=== PATIENT | female | born 1955 | race Caucasian/White ===

== ENCOUNTER 2024-12-15 23:01 | Observation (INO) | payer MEDICARE, MEDICAID, SELFPAY ==
[2024-12-15 23:04] VITALS: PULSE 73; O2SAT 98
[2024-12-15 23:11] VITALS: BP 181/85; PULSE 72; RESP 18; TEMP 36.7; O2SAT 98; BMI 22.6
[2024-12-15 23:30] VITALS: BP 160/75; PULSE 71; O2SAT 99
[2024-12-16] VITALS (25 sets, daily range): BP systolic 103–167; BP diastolic 58–78; PULSE 66–96; RESP 12–18; TEMP 35.9–37; O2SAT 92–100; BMI 22.6
[2024-12-16 00:03] LABS: Add Manual Diff / Slide Review NO; Basophils Absolute Auto 100 /uL (0-100); Basophils Percent Auto 0.4 % (0-2); Eosinophils Absolute Auto 0 /uL (0-450); Eosinophils Percent Auto 0.2 % (2-4); Hematocrit 41.7 % (36-46); Hemoglobin 13.8 g/dL (12.0-16.0); Lymphocytes Absolute Auto 1600 /uL (1100-4500); Mean Corpuscular Volume 99.9 fL (80-100); Monocytes Absolute Auto 900 /uL (0-900); Monocytes Percent Auto 6.5 % (3-14); Neutrophils Absolute Auto 11100 /uL (1500-7000); Neutrophils Percent Auto 80.9 % (50-75); Platelet Count 212 X10^3/uL (150-400); Red Blood Cell Count 4.18 X10^6/uL (4.0-5.2); White Blood Cell Count 13.7 X10^3/uL (4.5-11.0)
[2024-12-16 00:14] LABS: Alanine Aminotransferase 18 IU/L (<35); Albumin 4.3 g/dL (3.5-5.0); Albumin Globulin Ratio 1.6 (1.0-2.8); Alkaline Phosphatase 68 U/L (38-126); Aspartate Aminotransferase 27 IU/L (14-36); BUN Creatinine Ratio 11.8 (6-22); Bilirubin Total 0.6 mg/dL (0.2-1.3); Blood Urea Nitrogen 8 mg/dL (7-17); Calcium 8.6 mg/dL (8.4-10.2); Carbon Dioxide 27 mmol/L (22-32); Chloride 103 mmol/L (98-107); Estimated Glomerular Filt Rate > 60 mL/min (>60); Globulin 2.7 g/dL (1.7-4.1); Glucose 112 mg/dL (70-99); HEMOLYSIS 28 (0-50); Lipase 52 U/L (23-300); Sodium 136 mmol/L (137-145)
--- NOTE | 2024-12-16 00:18 | DI.CT.S_ITS ---
PROCEDURE: CT ABDOMEN PELVIS W CON INDICATIONS: LLQ abd pain TECHNIQUE: After the administration of intravenous contrast, axial sections acquired from the lung bases to the pubic symphysis. Coronal and sagittal reformats were performed. For radiation dose reduction, the following was used: automated exposure control, adjustment of mA and/or kV according to patient size. COMPARISON: None. FINDINGS: Image quality: Diagnostic. Lower Chest: No significant findings. ABDOMEN: Liver: No solid mass. Small cysts. Gallbladder: No radiopaque gallstones or wall thickening. Biliary ducts: No biliary dilation. Pancreas: No ductal dilation. Spleen: Size is within normal limits. Adrenal Glands: No adrenal nodules. Kidneys and Ureters: No hydronephrosis. No solid mass. No complex renal cystic lesion which requires follow up. Stomach and Bowel: Diverticulosis. No diverticulitis. The appendix is dilated measuring 1.6 cm, (3/37). The appendiceal wall is thickened and hyperemic. Findings consistent with acute appendicitis. No appendectolith. The appendix projects towards the midline. High-density material in the right colon most likely medication fragments or Tums. No small bowel obstruction. The stomach is not distended. Peritoneum: No abnormal intraperitoneal fluid. No free air. Ventral Wall: No significant ventral hernia. Abdominal Nodes: No retroperitoneal or mesenteric adenopathy by size criteria. Vessels: No aortic aneurysm. Moderate calcified plaque. PELVIS: Pelvic Organs: Anteverted uterus. Trace free fluid in the pelvis.. Bladder: No bladder wall thickening, accounting for underdistention. Pelvic Nodes: No enlarged lymph nodes. Miscellaneous: Tiny fat containing umbilical hernia. Bones: No aggressive osseous abnormality. IMPRESSION: 1. Acute appendicitis. No abscess. 2. Trace free fluid in the pelvis. No pneumoperitoneum. Comment: Findings were discussed with Walter White at 2:00 a.m. Dictated by: Vinod Calderón M.D. on 12/16/2024 at 1:52 Approved by: Vinod Calderón M.D. on 12/16/2024 at 2:02
[2024-12-16 00:23] LABS: Ethanol (ETOH) < 10 mg/dL
--- NOTE | 2024-12-16 00:25 | ED_ITS ---
HPI - Abdominal Pain General Chief Complaint: Abdominal Pain Stated Complaint: Abd pain LLQ Time Seen by Provider: 12/15/24 23:08 Source: patient and EMS Mode of arrival: EMS History of Present Illness HPI narrative: 67-year-old female with left lower quadrant abdominal discomfort for the last few days, status post screening colonoscopy 2 weeks ago at [facility] that she reports was negative, does not recall any biopsy done at that time, discharged from that procedure feeling well. Prior , otherwise no abdominopelvic surgeries. Pain worsened overnight, was flown here by air ambulance helicopter for further evaluation from [facility]. Related Data Allergies Allergy/AdvReac Type Severity Reaction Status Date / Time naproxen [From Aleve] Allergy Verified 12/15/24 23:10 Patient History Medical History (Updated 12/16/24 @ 10:00 by Vitaly Noyola MD) Anxiety Surgical History (Updated 12/16/24 @ 09:51 by Vitaly Noyola MD) History of section Social History household members: significant other Smoking Status: Never smoker Smoking Status: Never smoker Alcohol type: hard liquor Exam Narrative Exam Narrative: GENERAL: Well-developed patient, in mild distress. HEAD: Atraumatic. Normocephalic. EYES: Pupils equal round and reactive. Extraocular motions intact. No scleral icterus. No injection or drainage. ENT: Nose without bleeding, purulent drainage. Throat without erythema, tonsillar hypertrophy or exudate. Airway patent. NECK: Trachea midline. Non tender CARDIOVASCULAR: Regular rate and rhythm without murmurs, gallops, or rubs. RESPIRATORY: Clear to auscultation. Breath sounds equal bilaterally. No wheezes, rales, or rhonchi. GASTROINTESTINAL: Abdomen soft, some tenderness suprapubic and adjacent left lower quadrant, nondistended, no guarding or rebound tenderness, bowel tones present without rushes or tinkles. No obvious ventral hernias. EXTREMITIES: No edema or joint tenderness. BACK: Nontender without deformity or crepitance. No flank tenderness. NEURO: AOx3. Motor functions grossly nonfocal SKIN: No rash or erythema of visible areas Initial Vital Signs Initial Vital Signs: Vital Signs Pulse Rate 73 12/15/24 23:04 Pulse Oximetry 98 12/15/24 23:04 Course Orders Ordered: Hydromorphone HCl (Hydromorphone 0.5 Mg Inj) 0.5 mg IV Q2H PRN PRN Reason: Pain, Severe (7-10) Last Admin: 12/16/24 10:38 Dose: 0.5 mg Documented By: Admin: 12/16/24 08:16 Dose: 0.5 mg Documented By: Admin: 12/16/24 04:39 Dose: 0.5 mg Documented By: KRISTAL Lactated Ringer's (Lactated Ringers) 1,000 mls @ 100 mls/hr IV CONT KYMBERLY Last Admin: 12/16/24 04:40 Dose: 100 mls/hr Documented By: KRISTAL Lactated Ringer's (Lactated Ringers) 1,000 mls @ 42 mls/hr IV CONT KYMBERLY Discontinued Medications Acetaminophen (Acetaminophen 325 Mg Tablet) 975 mg PO NOW ONE Stop: 12/16/24 13:03 Hydromorphone HCl (Hydromorphone 0.5 Mg Inj) 0.5 mg IV NOW ONE Stop: 12/16/24 00:35 Last Admin: 12/16/24 00:40 Dose: 0.5 mg Documented By: GURJIT Piperacillin Sod/Tazobactam (Sod 4.5 gm/ Sodium Chloride) 100 mls @ 200 mls/hr IV NOW ONE Stop: 12/16/24 01:59 Last Infusion: 12/16/24 09:44 Dose: Infused Documented By: Admin: 12/16/24 04:18 Dose: 200 mls/hr Documented By: KRISTAL Cefazolin Sodium/Dextrose (Ancef) 100 mls @ 200 mls/hr IV NOW ONE Stop: 12/16/24 15:14 Ondansetron HCl (Ondansetron 4 Mg/2 Ml Inj) 4 mg IV NOW ONE Stop: 12/16/24 00:35 Last Admin: 12/16/24 00:40 Dose: 4 mg Documented By: GURJIT Vital Signs Vital signs: Vital Signs - 8 hr 12/15/24 23:04 12/15/24 23:11 12/15/24 23:30 Temperature 98.1 F Pulse Rate 73 72 Respiratory Rate 18 Blood Pressure 181/85 H 160/75 H Pulse Oximetry 98 98 Oxygen Delivery Method Room Air Oxygen Flow Rate 12/15/24 23:30 12/16/24 00:00 12/16/24 00:03 Temperature Pulse Rate 71 70 Respiratory Rate Blood Pressure 167/73 H Pulse Oximetry 99 100 Oxygen Delivery Method Oxygen Flow Rate 12/16/24 00:03 12/16/24 00:30 12/16/24 00:30 Temperature Pulse Rate 69 71 Respiratory Rate Blood Pressure 166/78 H Pulse Oximetry 100 100 Oxygen Delivery Method Oxygen Flow Rate 12/16/24 01:25 Temperature Pulse Rate Respiratory Rate Blood Pressure Pulse Oximetry 99 Oxygen Delivery Method Nasal Cannula Oxygen Flow Rate 2 MDM - Abdominal Pain Lab Data Attestation: I reviewed the patient's lab results. Lab results narrative: White blood cell count 65593, hemoglobin 13.8, platelets normal. Basic metabolic panel unremarkable. Normal renal function. Liver functions and lipase normal. 12/15/24 23:55 12/15/24 23:55 Labs: Lab Results 12/15/24 Range/Units 23:55 WBC 13.7 H (4.5-11.0) X10^3/uL RBC 4.18 (4.0-5.2) X10^6/uL Hgb 13.8 (12.0-16.0) g/dL Hct 41.7 (36-46) % MCV 99.9 (80-100) fL MCH 33.0 (26-34) PG MCHC 33.0 (30-36) % RDW 13.0 (11.6-14.8) % Plt Count 212 (150-400) X10^3/uL Neut % (Auto) 80.9 H (50-75) % Lymph % (Auto) 12.0 L (25-40) % Emmons % (Auto) 6.5 (3-14) % Eos % (Auto) 0.2 L (2-4) % Baso % (Auto) 0.4 (0-2) % Neut # (Auto) 04283 H (2280-6744) /uL Lymph # (Auto) 1600 (3470-0097) /uL Emmons # (Auto) 900 (0-900) /uL Eos # (Auto) 0 (0-450) /uL Baso # (Auto) 100 (0-100) /uL Sodium 136 L (137-145) mmol/L Potassium 4.0 (3.4-5.1) mmol/L Chloride 103 (98-107) mmol/L Carbon Dioxide 27 (22-32) mmol/L BUN 8 (7-17) mg/dL Creatinine 0.68 (0.52-1.04) mg/dL Estimated GFR > 60 (>60) mL/min BUN/Creatinine Ratio 11.8 (6-22) Glucose 112 H (70-99) mg/dL Calcium 8.6 (8.4-10.2) mg/dL Total Bilirubin 0.6 (0.2-1.3) mg/dL AST 27 (14-36) IU/L ALT 18 (<35) IU/L Alkaline Phosphatase 68 (38-126) U/L Total Protein 7.0 (6.3-8.2) g/dL Albumin 4.3 (3.5-5.0) g/dL Globulin 2.7 (1.7-4.1) g/dL Albumin/Globulin Ratio 1.6 (1.0-2.8) Lipase 52 (23-300) U/L Ethyl Alcohol < 10 ( - 10) mg/dL Imaging Data CT scan - abdomen/pelvis: Radiologist's Impression: [place] [address] CT Scan Report Signed Patient: Samantha Pinon MR#: [id number] : 1955 Acct:[id number] Age/Sex: 69 / F Date of Service: 12/16/24 Loc: ED Accession Number: [id number] Procedure: CT abdomen pelvis w con Ordering Provider: Walter White MD PROCEDURE: CT ABDOMEN PELVIS W CON INDICATIONS: LLQ abd pain TECHNIQUE: After the administration of intravenous contrast, axial sections acquired from the lung bases to the pubic symphysis. Coronal and sagittal reformats were performed. For radiation dose reduction, the following was used: automated exposure control, adjustment of mA and/or kV according to patient size. COMPARISON: None. FINDINGS: Image quality: Diagnostic. Lower Chest: No significant findings. ABDOMEN: Liver: No solid mass. Small cysts. Gallbladder: No radiopaque gallstones or wall thickening. Biliary ducts: No biliary dilation. Pancreas: No ductal dilation. Spleen: Size is within normal limits. Adrenal Glands: No adrenal nodules. Kidneys and Ureters: No hydronephrosis. No solid mass. No complex renal cystic lesion which requires follow up. Stomach and Bowel: Diverticulosis. No diverticulitis. The appendix is dilated measuring 1.6 cm, (3/37). The appendiceal wall is thickened and hyperemic. Findings consistent with acute appendicitis. No appendectolith. The appendix projects towards the midline. High-density material in the right colon most likely medication fragments or Tums. No small bowel obstruction. The stomach is not distended. Peritoneum: No abnormal intraperitoneal fluid. No free air. Ventral Wall: No significant ventral hernia. Abdominal Nodes: No retroperitoneal or mesenteric adenopathy by size criteria. Vessels: No aortic aneurysm. Moderate calcified plaque. PELVIS: Pelvic Organs: Anteverted uterus. Trace free fluid in the pelvis.. Bladder: No bladder wall thickening, accounting for underdistention. Pelvic Nodes: No enlarged lymph nodes. Miscellaneous: Tiny fat containing umbilical hernia. Bones: No aggressive osseous abnormality. IMPRESSION: 1. Acute appendicitis. No abscess. 2. Trace free fluid in the pelvis. No pneumoperitoneum. Comment: Findings were discussed with Walter White at 2:00 a.m. Dictated by: Vinod Calderón M.D. on 12/16/2024 at 1:52 Approved by: Vinod Calderón M.D. on 12/16/2024 at 2:02 MDM Narrative Medical decision making narrative: 69-year-old female with lower abdominal pain about 2 weeks after colonoscopy without biopsy, tenderness seems to be midline suprapubic and slightly to the left. DX consider colitis, diverticulitis, obstruction, volvulus, perforation from recent colonoscopy/abscess, UTI, distal ureteral stone, regulatory attorney etiology, other. Keep NPO. Labs pending. IV Dilaudid for pain control. GFR favorable. CT abdomen and pelvis ordered. Phone call from Radiology, on CT scan they feel that there are changes of acute appendicitis without perforation, the appendix does extend toward the left side toward the bladder. See radiology CT report. Blood cultures, IV Zosyn antibiotic. Patient informed of results. We will consult with surgery. 0200, case discussed with surgery Dr. Jaimes who accepts patient for admission, surgery likely later this morning. Keep NPO. Discharge Plan Departure Patient Disposition: Admitted to Surgery Clinical Impression: Appendicitis, acute Qualifiers: Acute appendicitis type: with localized peritonitis Appendicitis gangrene presence: without gangrene Appendicitis perforation presence: without perforation Appendicitis abscess presence: without abscess Qualified Code(s): K 35.30 - Acute appendicitis with localized peritonitis, without perforation or gangrene Admit Date/Time: 12/16/24 02:23 Admit Provider: Dewayne Jaimes
[2024-12-16] MEDS: HYDROMORPHONE 0.5 MG INJ IV ×5 (00:40→22:48)
[2024-12-16] MEDS: ONDANSETRON 4 MG/2 ML INJ IV (00:40)
--- NOTE | 2024-12-16 01:20 | PC.NURSE ---
Pt oxygen desats to 86% on RA. She responds to this nurse and is alert. Pt placed on 2L via NC and her oxygen improves to 100% via NC.
[2024-12-16] MEDS: PIPERACILLIN/TAZO 4.5 GM in SODIUM CHLORIDE 0.9% 100 ML IV (04:18)
[2024-12-16] MEDS: LACTATED RINGERS 1,000 ML 100 ML IV ×2 (04:40→15:50)
--- NOTE | 2024-12-16 09:46 | P.HP_ITS ---
History of Present Illness History of Present Illness Chief complaint: Abd pain LLQ Narrative: 69 y/o female with 2 day h/o lower abdominal pain. It was initially generalized, then localized to the RLQ. WBC 13.7 in ER. No N/V. Presneted to ER where abdominal tenderness was noted. CT with edematous appendix c/w acute appendicitis. [facility] Medical History (Updated 12/16/24 @ 10:00 by Vitaly Noyola MD) Anxiety Surgical History (Updated 12/16/24 @ 09:51 by Vitaly Noyola MD) History of section Social History household members: significant other Smoking Status: Never smoker Meds Home Medications and Allergies Allergies Allergy/AdvReac Type Severity Reaction Status Date / Time naproxen [From Aleve] Allergy Verified 12/15/24 23:10 Review of Systems Review of Systems Narrative: Comprehensive review of systems negative to directed questioning. Exam Vital Signs (past 8 hours): - 12/16/24 02:00 12/16/24 02:11 12/16/24 02:11 Temperature Pulse Rate 73 77 Respiratory Rate Blood Pressure 156/75 H Pulse Oximetry 99 100 Oxygen Delivery Method Oxygen Flow Rate 12/16/24 02:30 12/16/24 02:30 12/16/24 04:30 Temperature Pulse Rate 68 73 Respiratory Rate 16 Blood Pressure 162/68 H 160/75 H Pulse Oximetry 100 98 Oxygen Delivery Method Room Air Oxygen Flow Rate 12/16/24 08:34 Temperature 96.6 F L Pulse Rate 66 Respiratory Rate 18 Blood Pressure 119/60 Pulse Oximetry 100 Oxygen Delivery Method Oxygen Flow Rate 0 Oxygen Delivery Method Room Air Oxygen Flow Rate 0 Const General: cooperative and healthy appearing Nutritional Appearance: average body habitus [facility] Head: normal to inspection, normocephalic and atraumatic Ears: hearing grossly normal bilaterally and external ears normal Nose: external nose normal and nares normal Mouth: oral mucosae normal, lip normal and tongue normal Teeth and gingiva: dentition normal and gingiva normal Eyes General: appearance normal, both eyes and all related structures EOM: EOM intact bilaterally Neck Neck: normal visual inspection, full ROM, no meningeal signs and supple Thyroid: thyroid normal Chest Chest: normal inspection of the chest and normal palpation of entire chest wall Resp Effort & Inspection: normal respiratory effort and able to speak in complete sentences Auscultation: clear to auscultation bilaterally Cardio Palpation: normal PMI Rate: regular rate Rhythm: regular rhythm Heart Sounds: S1 normal and S2 normal GI Inspection: normal to inspection Palpation: soft and tender (RLQ tenderness) Auscultation: hypoactive bowel sounds Back/Spine/Pelvis Back: normal to inspection Cervical Spine: normal cervical lordosis Thoracic/Lumbar Spine: thoracic and lumbar spine normal to inspection Skin General: no rashes or lesions noted Neuro General: patient alert, patient awake and patient oriented x3 Cranial Nerves: CN's II-XI intact bilaterally Extrem General: normal to inspection, full ROM and capillary refill normal Psych Appearance: grossly normal and well kempt Objective Labs 12/15/24 23:55 12/15/24 23:55 Labs: Laboratory Results - last 24 hr 12/15/24 23:55 WBC 13.7 H RBC 4.18 Hgb 13.8 Hct 41.7 MCV 99.9 MCH 33.0 MCHC 33.0 RDW 13.0 Plt Count 212 Neut % (Auto) 80.9 H Lymph % (Auto) 12.0 L Hale % (Auto) 6.5 Eos % (Auto) 0.2 L Baso % (Auto) 0.4 Neut # (Auto) 48129 H Lymph # (Auto) 1600 Hale # (Auto) 900 Eos # (Auto) 0 Baso # (Auto) 100 Sodium 136 L Potassium 4.0 Chloride 103 Carbon Dioxide 27 BUN 8 Creatinine 0.68 Estimated GFR > 60 BUN/Creatinine Ratio 11.8 Glucose 112 H Calcium 8.6 Total Bilirubin 0.6 AST 27 ALT 18 Alkaline Phosphatase 68 Total Protein 7.0 Albumin 4.3 Globulin 2.7 Albumin/Globulin Ratio 1.6 Lipase 52 Ethyl Alcohol < 10 Assessment & Plan Assessment and plan (1) Appendicitis, acute: Qualifiers: Acute appendicitis type: with localized peritonitis Appendicitis abscess presence: without abscess Appendicitis gangrene presence: without gangrene Appendicitis perforation presence: without perforation Qualified Code(s): K35.30 - Acute appendicitis with localized peritonitis, without perforation or gangrene Status: Acute Plan: Signs, symptoms and diagnostics c/w acute appendicitis. I have recommended a laparoscopic attempt at appendectomy. Alternatives, risks and benefits discussed in detail. Questions answered. Pt desires to proceed as I have outlined. Time-Based Coding :: [TOTAL MINUTES] spent with patient and on the chart (including review of chart, obtaining history, exam, reviewing outside data, placing orders, documenting exam and treatment plan, and counseling patient) on [DATE]. Quality VTE Deep Vein Thrombosis/Pulmonary Embolism Present on Admission: No IH PROFEE Sewer And Inspector Document charge(s): Yes
--- NOTE | 2024-12-16 11:58 | PC.NURSE ---
Addendum entered by Marian Mao R.N. 12/16/24 19:03: Patient back from surgery around 1830. She is doing well, no ivf hung as none were ordered post surgery. She denies pain. She has 3 small incision sites with jae, gauze, and bandaides. Patient is doing well. Original Note: Assess- Patient has complained of pain x2. She was given 0.5mg of iv dilaudid around 0815 and around 1030. This has been helpful to her. BT are hypoactive x4, she will be going to surgery sometime today. She has flares of disocomfort across her abdomen. She will be going for an appendectomy.
--- NOTE | 2024-12-16 14:33 | CM.DANOTE ---
DCP Assessment Note pt is a 69yo F admitted with acute appendicitis PCP ALESHA An Group Payer Medicare/[employer] MASONRY INSTRUCTOR reviewed EMR per chart review, plan for OR lap appy later this afternoon. MASONRY INSTRUCTOR entered room and introduced self and role. pt resting in bed. anxious about her OBS status/potential co pay. MASONRY INSTRUCTOR attempted to educate pt that her supplement will theoretically cover her Medicare OBS copay we just can't make promises on what is covered. Pt remains axious about her bill and her cats. Lives at home with partner Amisha. pt indep at baseline, no O2/DME/walks 6 miles per day. anxious about ferry. attempted to get ferry pass for 12/17 no reservations available, MASONRY INSTRUCTOR agreed to complete ferry medical boarding pass for 12/17 if pt stable to dc. pt appreciative. denies other CM/DCP needs. P: anticipate home tomorrow/when medically stable with partner to transport in POV/ferry, boarding pass needed. no other identified barriers to safe return home at this time, will continue to follow as needed CHUCK Marques Discharge Planning/Care Management CM Discharge Assessment Start: 12/16/24 14:31 Freq: Status: Active Protocol: Document 12/16/24 14:32 SL (Rec: 12/16/24 14:33 SL Desktop) Discharge Planning Assessment Assigned Quality Assurance Intern CHUCK Mcgarry DPOA/Assigned Designee Name malick Lion Contact Information [phone] Advance Directives? No History Provided By Patient Prior Living Arrangements House Household Members significant other Type of transporation used prior to Drives own vehicle admit Independent with ADL's Yes Is patient alert and oriented? Yes Discharge Plan Home Transportation Arrangement partner in POV and ferry Referrals Initiated None needed Whiteboard Updated in Patient Room with Yes name and ext. # of Quality Assurance Intern Review Status In Process Please Provide Date Initial DC 12/16/24 Assessment Was Performed Next Review Type Continued Stay Review
[2024-12-16] MEDS: HYDROMORPHONE 1 MG INJ 0.5 MG IV (15:53)
[2024-12-16] MEDS: CEFAZOLIN 2 GM/100 ML PREMIX 100 ML IV (16:33)
--- NOTE | 2024-12-16 16:48 | SUR.OPER ---
Supine on padded OR bed, head on pillow, right arm secured on padded arm boards at <90 degrees abduction, left arm tucked, legs uncrossed, pillow at knees, safety belt at thigh, tape over blanket over lower legs.
[2024-12-16] MEDS: ACETAMINOPHEN IV 1,000 MG/100 ML VIAL 400 MG IV (16:55)
[2024-12-16] MEDS: BUPIVACAINE 0.5% (PF) 30 ML VIAL INJ (17:08)
--- NOTE | 2024-12-16 17:55 | PM.OP.1 ---
Operative Date/Time/Diagnoses Pre-op diagnosis: acute appendicitis Post-op diagnosis: same Procedure & Clinicians Procedure: Laparoscopic appendectomy. Same procedure as scheduled: Yes Indications: Acute appendicitis Surgeon: Vitaly Noyola Click Yes if Unassisted: Yes Operative Notes Findings: Acute appendicitis Closure Type: primary Specimen(s): other (Vermiform appendix) Procedure in detail: After obtaining informed consent identifying the patient the patient was transported to the operating room and was placed on the table in the supine position general endotracheal anesthesia was induced and the abdomen was prepped and draped in the usual sterile manner. Time-out protocol was observed. A vertical midline incision 2.5 cm length was made with its caudad apex on the umbilical verge with a 15 blade. This was carried down onto the linea Alba bluntly. Traction sutures of 0 Vicryl were placed on either side of midline and a peritoneotomy was made under direct vision between the traction sutures. Surgeon's finger was introduced to ensure peritoneal entry and a 10 mm Hernandez cannula was installed. Pneumoperitoneum was instilled. A 5 mm 30 degree angled laparoscope was passed. Posterior surface of the abdominal wall was visually inspected and was free of adhesions. Two additional 5 mm ports were placed under direct laparoscopic vision, the 1st was positioned 2/[address] from the umbilicus to the symphysis pubis. The 2nd was positioned 2 fingerbreadths left of midline prison between the umbilicus and the 1st 5 mm port. Graspers were used to visualize the appendix after placing the table in Trendelenburg position canted to the patient's left. Lateral attachments of the appendix and cecum were taken sharply with the son beat. The mesoappendix was taken sharply with the same instrument this was carried down to the confluence of the appendiceal base and cecal wall. The scope was withdrawn from the Hernandez and passed through the left lower quadrant port and an echelon 45 stapler was passed through the Hernandez and applied to the confluence of the appendiceal base and cecal wall. The device was closed and fired. The echelon was released and withdrawn from the abdomen. An Endo-Catch specimen extracted was passed through the son and the specimen was bagged under direct laparoscopic vision. The Hernandez was withdrawn from the supraumbilical incision and the specimen was delivered in the Endo-Catch bag and passed from the field. The son was restored to its original position as was the 5 mm 30 degree scope. The pelvis was inspected and was copiously irrigated. All irrigant was evacuated. All laparoscopic equipment was withdrawn under direct laparoscopic vision. Pneumoperitoneum was evacuated. Supraumbilical fascial defect was closed with a running 0 Prolene stitch. Field blocks of 0.5% Marcaine were instilled into the wounds. 5 mm port sites were closed with inverted deep dermal 3-0 Vicryl sutures. The supraumbilical incision margins were coapted with 3 simple interrupted inverted deep dermal 3-0 Vicryl sutures and was further secured with skin jae. The patient tolerated the procedure well and was transported to the recovery room extubated and awake. Post-operative Plan for aftercare: Await return of GI function. Discharge patient when ambulatory, in reasonable comfort and tolerance of regular diet.
[2024-12-16] MEDS: OXYCODONE IR 5 MG TABLET PO (18:01)
[2024-12-16] MEDS: HYDROCODONE/ACET 5/325 TABLET 1 TAB PO (20:46)
[2024-12-16] MEDS: SODIUM CHLORIDE 0.9% FLUSH 10 ML IV (21:05)
[2024-12-17 02:00] VITALS: BP 112/56; PULSE 74; RESP 18; TEMP 36.3; O2SAT 97
[2024-12-17] MEDS: HYDROMORPHONE 0.5 MG INJ IV (02:56)
[2024-12-17] MEDS: HYDROCODONE/ACET 5/325 TABLET 1 TAB PO (04:42)
[2024-12-17 06:05] LABS: Add Manual Diff / Slide Review NO; Basophils Absolute Auto 0 /uL (0-100); Basophils Percent Auto 0.2 % (0-2); Eosinophils Absolute Auto 0 /uL (0-450); Hematocrit 36.4 % (36-46); Hemoglobin 12.3 g/dL (12.0-16.0); Lymphocytes Absolute Auto 700 /uL (1100-4500); Lymphocytes Percent Auto 6.2 % (25-40); Mean Corpuscular HGB Conc 33.7 % (30-36); Mean Corpuscular Hemoglobin 33.6 PG (26-34); Mean Corpuscular Volume 99.7 fL (80-100); Monocytes Absolute Auto 600 /uL (0-900); Monocytes Percent Auto 5.4 % (3-14); Neutrophils Absolute Auto 9300 /uL (1500-7000); Neutrophils Percent Auto 88.2 % (50-75); Platelet Count 205 X10^3/uL (150-400); Red Blood Cell Count 3.65 X10^6/uL (4.0-5.2); Red Cell Distribution Width 12.6 % (11.6-14.8); White Blood Cell Count 10.6 X10^3/uL (4.5-11.0)
[2024-12-17 06:16] LABS: BUN Creatinine Ratio 14.8 (6-22); Blood Urea Nitrogen 9 mg/dL (7-17); Calcium 8.4 mg/dL (8.4-10.2); Carbon Dioxide 27 mmol/L (22-32); Chloride 100 mmol/L (98-107); Estimated Glomerular Filt Rate > 60 mL/min (>60); Glucose 115 mg/dL (70-99); HEMOLYSIS < 15 (0-50); Potassium 4.4 mmol/L (3.4-5.1); Sodium 133 mmol/L (137-145)
--- NOTE | 2024-12-17 08:00 | P.DS_ITS ---
History of Present Illness History of Present Illness Chief complaint: Abd pain LLQ Narrative: 69 y/o female with 2 day h/o lower abdominal pain. It was initially generalized, then localized to the RLQ. WBC 13.7 in ER. No N/V. Presneted to ER where abdominal tenderness was noted. CT with edematous appendix c/w acute appendicitis. Discharge Providers Provider Date of admission: 12/16/24 02:23 Discharge Date: 12/17/24 Primary care physician: Doctor Aroldo MD Consults: 12/16/24 05:10 Consult to Dietitian, Adult Routine Comment: Reason For Exam: protocol 12/16/24 18:49 Consult to Discharge Planning Routine Comment: Discharge provider: Vitaly Noyola MD Summary Hospital Course Discharge Diagnosis: Acute appendicitis Hospital Course: 69-year-old female who presented to the ED with signs symptoms and diagnostics consistent with acute appendicitis. She was admitted for definitive management. Past medical and surgical history see my dictated H and P for the specifics. Physical exam see my dictated H and P for the specifics. Of note was right lower quadrant tenderness and a leukocytosis with a CT scan demonstrating an edematous appendix. Course in the hospital patient was admitted, preoperative evaluation demonstrated no contraindications to proceeding with urgent intervention on the the patient was taken to the operating room where laparoscopic appendectomy was undertaken under general endotracheal anesthesia. Intraoperative findings were consistent with acute appendicitis. The procedure was uncomplicated and well tolerated by the patient. Her postoperative course characterized by rapid recovery. She was much more comfortable postop heavily and tolerated regular diet, followed by a clear liquid diet. She is discharged to home on the morning of the 1st postoperative day ambulatory, tolerating p.o. was in good condition. She will follow up in 1 week. Exam Vital Signs (past 8 hours): - 12/17/24 02:00 Temperature 97.3 F L Pulse Rate 74 Respiratory Rate 18 Blood Pressure 112/56 L Pulse Oximetry 97 Oxygen Delivery Method Room Air Oxygen Flow Rate 0 Objective Labs 12/17/24 04:50 12/17/24 04:50 Labs: Laboratory Results - last 24 hr 12/17/24 04:50 WBC 10.6 RBC 3.65 L Hgb 12.3 Hct 36.4 MCV 99.7 MCH 33.6 MCHC 33.7 RDW 12.6 Plt Count 205 Neut % (Auto) 88.2 H Lymph % (Auto) 6.2 L [place] % (Auto) 5.4 Eos % (Auto) 0.0 L Baso % (Auto) 0.2 Neut # (Auto) 9300 H Lymph # (Auto) 700 L [place] # (Auto) 600 Eos # (Auto) 0 Baso # (Auto) 0 Sodium 133 L Potassium 4.4 Chloride 100 Carbon Dioxide 27 BUN 9 Creatinine 0.61 Estimated GFR > 60 BUN/Creatinine Ratio 14.8 Glucose 115 H Calcium 8.4 PFSH Medical History (Updated 12/16/24 @ 10:00 by Vitaly Noyola MD) Anxiety Surgical History (Updated 12/16/24 @ 09:51 by Vitaly Noyola MD) History of section Social History household members: significant other Smoking Status: Never smoker alcohol intake: current Discharge Plan Discharge Plan Patient Disposition: Home Discharge orders & Medications Prescriptions: New hydrocodone-acetaminophen 5-325 mg tablet 1 tab PO Q6H PRN (Reason: pain) Qty: 30 0RF hydrocodone-acetaminophen 5-325 mg tablet 1 tab PO Q6H PRN (Reason: pain) Qty: 30 0RF Continued alendronate 10 mg tablet PO clonazepam 0.5 mg tablet 0.5 mg PO BID PRN (Reason: anxiety) mirtazapine 30 mg tablet 15 mg PO ONCE PM aripiprazole 5 mg tablet 2.5 mg PO DAILY rosuvastatin 5 mg tablet 5 mg PO DAILY Follow up/Referrals: Doctor Kendrick MD [Primary Care Provider] - Visit Report/Discharge Packet Stand Alone Forms: Patient Portal/API, Stroke Signs & Symptoms Discharge Data Primary Care Provider: Doctor Aroldo Attending Provider: Dewayne Jaimes Admit Date/Time: 12/16/24 02:23 Quality VTE Deep Vein Thrombosis/Pulmonary Embolism Present on Admission: No [facility]EE Charge Codes Discharge inpatient/observation: [id number]
--- NOTE | 2024-12-17 08:30 | PC.NURSE ---
Patient just got done ambulating in the halls. Her lap incisions to abdomen are cdi, covered with jae ,gauze, and bandaides. She is tolerating breakfat and will be discharging around 1100.
[2024-12-17] MEDS: ENOXAPARIN 40 MG/0.4 ML SYRINGE SUBCUT (08:42)
--- NOTE | 2024-12-17 08:43 | CM.DPC ---
DCP note [employer] reviewed EMR per chart, cleared for dc. Per pt, attempted to get ferry reservation for today none available. hopeful for 1030 leave hospital to catch 11:55 ferry. [employer] completed boarding pass. gave printed copy to pt in room. appreciative denies other CM/DCP needs. P: home today with partner to transport on ferry. no identified barriers to safe dc home. will continue to follow as needed CHUCK Marques
[2024-12-17 09:05] VITALS: BP 118/64; PULSE 85; RESP 16; TEMP 36.3; O2SAT 96
--- NOTE | 2024-12-17 10:15 | DIET.CONS ---
Dietary Consultation Note Admission Date: 12/16/2024 02:23 Assessment: 69 y F admitted for acute appendicitis. Dietitian consulted for protocol. MNA score normal and per MNA score, no decrease in appetite or weight loss. Pt underwent surgery yesterday and was discharging this morning to [facility]. Tolerating PO intakes per surgery. Ht: 167.64 cm Wt: 63.503 kg BMI: 22.6 UBW: no wt hx Last BM: 12/14/24 (12/16/24 15:20) MNA: 11 Mikael Score: 21 Diet: 12/16/24 Dinner Clear Liquid Diet Diet Modifications: May Advance Diet as Tolerated: Yes 12/17/24 Breakfast General (Regular) Diet Diet Modifications: Food Texture: Level 7 - Regular Liquid Consistency: Level 0 - Thin Labs: RBC 3.65 X10^6/uL (4.0-5.2) L 12/17/24 04:50 Hgb 12.3 g/dL (12.0-16.0) 12/17/24 04:50 Hct 36.4 % (36-46) 12/17/24 04:50 Creatinine 0.61 mg/dL (0.52-1.04) 12/17/24 04:50 Nutrition Diagnosis: none Monitoring/Evaluations: pt discharging Electronically Signed by: Lucia Heck 12/17/24 10:15 Clinical Dietitian [address] [address]
== END 2024-12-17 10:58 | disposition home or self-care (01) ==
LOC: ED 12-16 02:09 → AC 12-16 02:36
PROVIDERS: Surgery; Admitting Provider Surgery; Emergency Provider Emergency Medicine; Referring Provider Emergency Medicine; Visit Provider Surgery
PROC: 0DTJ4ZZ Resection of Appendix, Percutaneous Endoscopic Approach (ICD-10-PCS; CPT 44970; principal; 2024-12-16 16:00)
DX: R10.32 Left lower quadrant pain (principal); K35.80 Unspecified acute appendicitis
CPT/HCPCS: 44970; 36415; 74177; 80048; 80053; 80320; 83690; 85025; 87040; 96365; 96366; 96372; 96375; 96376; 99284; G0378; J0131; J0330; J0690; J1100; J1171; J1650; J2250; J2405; J2543; J2704; J3010; J3490; Q9967